=== PATIENT | male | born 1965 | race Caucasian/White ===

== ENCOUNTER 2018-01-07 07:40 | Day surgery (SDC) | payer BC ==
[~2018-01-07] VITALS: Ht 170.2 cm; Wt 129.3 kg
[~2018-01-07 07:40] MED LIST: HYDACE5 PO; LISI5 PO; META800 PO
== END 2018-01-07 09:32 | disposition home or self-care (01) ==
LOC: ORSCMMR 07:40 → ORD 08:30 → ORSCMMR 09:32
PROVIDERS: Internal Medicine Gastroenterology
PROC: 0DBN8ZX Excision of Sigmoid Colon, Via Natural or Artificial Opening Endoscopic, Diagnostic (ICD-10-PCS; principal; 2018-01-07 08:30)
DX: Z12.11 Encounter for screening for malignant neoplasm of colon (principal); D12.5 Benign neoplasm of sigmoid colon; K63.5 Polyp of colon; I10 Essential (primary) hypertension; E66.01 Morbid (severe) obesity due to excess calories; Z68.41 Body mass index [BMI] 40.0-44.9, adult; Z79.899 Other long term (current) drug therapy
CPT/HCPCS: 88305; J2250; J3010; J7120

== ENCOUNTER → 2022-12-21 | Outpatient (CLI) | payer BC | END | disposition home or self-care (01) | LOC: PLD 07:28 → LAB SHORT 07:28 → LAB 07:28 | DX: D04.5 Carcinoma in situ of skin of trunk (principal); D48.5 Neoplasm of uncertain behavior of skin | CPT/HCPCS: 88305 ==